=== PATIENT | female | born 1940 | race Caucasian/White ===

== ENCOUNTER → 2020-03-07 | Outpatient (CLI) | payer MEDICARE, OTHER ==
--- NOTE | 2020-03-07 17:13 | RAD ---
Bone mineral density exam History: Screening, takes calcium supplement, history of breast cancer, height loss Comparison: None Findings: Bone mineral density examination utilizing DEXA was performed. Right hip bone mineral density of 703 mg/cm2 corresponds with a T score -2.1, Z score of 0.0. The bone mineral density of the lumbar spine was 1.128 g/cm2 which corresponds with a T-score of -0.4, Z score 1.6. By [employer] on Osteoporosis criteria, a T score of 0 to-1 SD is considered to be within normal limits. A T score of -1 to -2.5 SD is considered osteopenia. A T score less than -2.5 SD is considered osteoporosis Impression: 1. There is osteopenia of the right hip. Bone mineral density of the lumbar spine is within normal limits although may be artificially elevated due to the presence of degenerative change and scoliosis. Electronically signed by: Raghav De Santiago MD (03/07/2020 5:10 PM) [id number]
== END | disposition home or self-care (01) ==
LOC: DXRAD 13:03
PROVIDERS: ATTEND Family Medicine
DX: Z78.0 Asymptomatic menopausal state (principal); M47.816 Spondylosis without myelopathy or radiculopathy, lumbar region; M41.86 Other forms of scoliosis, lumbar region
CPT/HCPCS: 77080